=== PATIENT | male | born 1985 | race Caucasian/White ===

== ENCOUNTER 2018-07-25 18:39 | Emergency (ER) | payer MEDICAID, SELFPAY ==
[2018-07-25 18:40] VITALS: BP 142/87; PULSE 94; RESP 18; TEMP 36.4; O2SAT 99; BMI 23.1
--- NOTE | 2018-07-25 19:37 | ED.VISSUMM ---
- ER Visit Summary Date of Service: 07/25/18 Chief Complaint: Fall complaining of back pain History of Present Illness: The patient is a 33 M past medical history of schizophrenia. Patient states he was drinking alcohol last night. He went to walk down steps. Lost his balance and fell down approximately 5 steps. Denies hitting his head. Denies any LOC. Denies any headache or neck pain. Complaining of low back pain. Denies any prior significant back history or prior back surgery. Denies any bowel or bladder incontinence. Denies any weakness in his lower extremities. Physical Examination: Well-appearing young male. Vital signs are stable. Afebrile. H EENT exam atraumatic. Pupils round reactive light. No signs of facial trauma. No signs of scalp trauma. Nontender. No hematomas. C-spine nontender. Trachea midline. Full range of motion to his neck. Lungs clear to auscultation. Heart regular rate and rhythm no murmur. Heart rate 90. Chest wall nontender. No signs of trauma to the chest wall. Abdomen soft nontender. No signs of trauma. Normal bowel sounds. No peritoneal signs. Pelvic girdle intact. He is moving all 4 extremities. They are neurovascularly intact. 5 out of 5 stave cutter strength bilaterally. Dorsi and plantar flexion intact. No cauda equina. No saddle anesthesia. Neurologically is awake and alert. He has no focal motor deficits. No sensory deficits. Back is unremarkable except tenderness diffusely over his lower lumbar spine. There is no ecchymosis or bruising. No gross bony deformities. No redness or warmth. The cervical and thoracic spines are both nontender. Test Results: Lumbar spine x-rays shows chronic changes no acute process. No acute fracture. Emergency Department Course and Treatment: Discharged home. Tylenol for pain. Treatment Plan: Ice to any sore areas. Warm compresses and warm bath to relax the muscles. Disposition: Discharge Impression: Acute fall Acute lumbar contusion and strain History of schizophrenia This note was generated with [employer] dictation software. It may contain incorrect words, spelling, and punctuation that were not noted in review of the chart prior to signing ED Disposition - Plan for ED Patient: Chief Complaint: Back Referrals: Care Physician,No Primary [Primary Care Provider] -
--- NOTE | 2018-07-25 19:40 | ED.DCSUM_ITS ---
- ER Visit Summary Date of Service: 07/25/18 Chief Complaint: Fall complaining of back pain History of Present Illness: The patient is a 33 M past medical history of schizophrenia. Patient states he was drinking alcohol last night. He went to walk down steps. Lost his balance and fell down approximately 5 steps. Denies hitting his head. Denies any LOC. Denies any headache or neck pain. Complaining of low back pain. Denies any prior significant back history or prior back surgery. Denies any bowel or bladder incontinence. Denies any weakness in his lower extremities. Physical Examination: Well-appearing young male. Vital signs are stable. Afebrile. H EENT exam atraumatic. Pupils round reactive light. No signs of facial trauma. No signs of scalp trauma. Nontender. No hematomas. C-spine nontender. Trachea midline. Full range of motion to his neck. Lungs clear to auscultation. Heart regular rate and rhythm no murmur. Heart rate 90. Chest wall nontender. No signs of trauma to the chest wall. Abdomen soft nontender. No signs of trauma. Normal bowel sounds. No peritoneal signs. Pelvic girdle intact. He is moving all 4 extremities. They are neurovascularly intact. 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 Dorsi and plantar flexion intact. No cauda equina. No saddle anesthesia. Neurologically is awake and alert. He has no focal motor deficits. No sensory deficits. Back is unremarkable except tenderness diffusely over his lower lumbar spine. There is no ecchymosis or bruising. No gross bony deformities. No redness or warmth. The cervical and thoracic spines are both nontender. Test Results: Lumbar spine x-rays shows chronic changes no acute process. No acute fracture. Emergency Department Course and Treatment: Discharged home. Tylenol for pain. Treatment Plan: Ice to any sore areas. Warm compresses and warm bath to relax the muscles. Disposition: Discharge Impression: Acute fall Acute lumbar contusion and strain History of schizophrenia This note was generated with [employer] dictation software. It may contain incorrect words, spelling, and punctuation that were not noted in review of the chart prior to signing ED Disposition - Plan for ED Patient: Chief Complaint: Back Referrals: Care Physician,No Primary [Primary Care Provider] -
--- NOTE | 2018-07-25 19:40 | RAD_ITS ---
STUDY: X-RAY - LUMBAR SPINE REASON FOR EXAM: Male, 33 years old. Back pain after falling. TECHNIQUE: 3 view(s) of the lumbar spine were obtained. COMPARISON: None FINDINGS: There is straightening of the normal lumbar lordosis. There is no substantial scoliosis. There is a normal alignment of the vertebrae. The posterior height of L5 is reduced/slightly wedge-shaped posteriorly suggesting a component of hypoplasia. There is possibly a unilateral or bilateral pars defect at L5, chronic in nature. Incomplete ossification of the posterior arch of L5. Degenerative disc narrowing primarily at L5-S1. Normal disc at other levels. Negative for acute fracture of the lumbar spine. The soft tissue structures are unremarkable. RAD/Lumbar Spine 2 or 3 Views IMPRESSION: Normal alignment of the lumbar spine without acute fracture deformity. Degenerative disc narrowing at L5-S1. Slightly hypoplastic appearing L5 with incomplete ossification of the arch of L5. Potential chronic pars interarticularis defect. Electronically Signed: Aisha Chaudhry MD at 20:05 EDT , Service support ,
--- NOTE | 2018-07-25 20:25 | ED.DEP ---
ED Disposition - Plan for ED Patient: Disposition: Home or Assisted Living Chief Complaint: Back Instructions: ED Contusion Back, ED Sprain Strain Lumbar Referrals: Mode Simpson MD [NON-STAFF] - Additional Instructions: Hot shower warm bath to relax the muscles in your back. Tylenol for pain. Call and follow-up with Dr. Simpson.
[2018-07-25 20:33] VITALS: RESP 16
== END 2018-07-25 20:34 | disposition home or self-care (01) ==
PROVIDERS: Emergency Provider Emergency Medicine
DX: S39.012A Strain of muscle, fascia and tendon of lower back, initial encounter (principal); W10.9XXA Fall (on) (from) unspecified stairs and steps, initial encounter; Y93.01 Activity, walking, marching and hiking; Y92.9 Unspecified place or not applicable; Y99.9 Unspecified external cause status; F20.9 Schizophrenia, unspecified; Z72.0 Tobacco use; Z79.899 Other long term (current) drug therapy
CPT/HCPCS: 72100; 99282

== ENCOUNTER 2018-08-27 22:38 | Emergency (ER) | payer MEDICAID, SELFPAY ==
[2018-08-27 22:43] VITALS: BP 123/82; PULSE 103; RESP 18; TEMP 36.8; O2SAT 98; BMI 22.9
--- NOTE | 2018-08-27 22:46 | ED.RN ---
SUICIDE PRECAUTIONS INITIATED UPON TRIAGING PT, THIS RN REMAINED WITH PT UNTIL 1:1 SITTER ASSIGNED. PT APPEARS INTOXICATED. STATES HE IS VERY STRESSED BECAUSE HIS FUCKING IDIOT LANDLORD EVICTED HIM. PT LIVES WITH SISTER WHO CALLED POLICE TONIGHT AFTER FINDING PT WITH BELT AROUND NECK. PT STATES HE FEELS THE WORLD WOULD BE BETTER OFF WITHOUT HIM. ALSO STATES HE WOULD LIKE TO HURT HIS LANDLORD. ADMITS TO CONSUMING 2 BEERS AND 1 SHOT OF WHISKEY.
[2018-08-27 23:21] LABS: Absolute Lymphocyte Count 3.57 X10^3/ul (0.83-4.51); Absolute Neutrophil Count 6.4 X10^3/uL (2.0-7.7); Basophil# 0.09 X10^3/uL; Basophil% 0.8 % (0-1); Eosinophil# 0.33 X10^3/uL; Eosinophils% 2.8 % (0-5); Hematocrit 51.3 % (40-54); Hemoglobin 17.6 g/dl (13.0-16.5); Lymphocyte # 3.57 X10^3/ul (4.0); Lymphocyte % 30.7 % (19-41); Mean Corp Hgb Conc 34.3 g/gl (32-36); Mean Corpuscular Hgb 31.7 pg (27.0-32.0); Mean Corpuscular Volume 92.3 fL (80-94); Mean Platelet Vol. 10.4 fl (6.2-12.0); Monocyte# 1.24 X10^3/uL; Monocyte% 10.7 % (0-10); Neutrophil # 6.39 X10^3/uL (2.7-7.7); Neutrophil % 54.8 % (47-70); POSITIVE COUNT NO; POSITIVE DIFFERENTIAL NO; POSITIVE MORPHOLOGY NO; Platelet Count 263 K/mm3 (150-450); RBC Distribution Width CV 12.9 % (11.6-14.6); RBC Distribution Width SD 43.3 fl (35.1-43.9); Red Blood Count 5.56 M/mm3 (4.6-6.2); White Blood Count 11.6 K/mm3 (4.4-11.0)
[2018-08-27 23:32] LABS: Anion Gap 8 (5-15); BUN 5 mg/dL (7-18); BUN/Creat Ratio 4.2 RATIO (10-20); Calcium,Total 8.8 mg/dL (8.5-10.1); Chloride 104 mmol/L (98-107); Creatinine, Serum 1.19 mg/dL (0.70-1.30); EST Glomerular Filtration Rate 74 mL/min (>60); Est Glom Filt Rate - Afr Amer 90 mL/min (>60); Estimated Creatinine Clearance 89.79 ml/min; Glucose 87 mg/dL (74-106); Potassium 3.8 mmol/L (3.5-5.1); Sodium Level 140 mmol/L (136-145)
--- NOTE | 2018-08-27 23:32 | ED.VISSUMM ---
- ER Visit Summary Date of Service: 08/27/18 Chief Complaint: Self harm behavior History of Present Illness: The patient is a 33 M who had a belt around his neck and tried pulling at it to help him sleep. He is upset because he is being evicted. He denies the fact that he wanted to hurt himself. He does admit to quite a bit of alcohol tonight. Denies any other drugs. Physical Examination: Not appear in acute distress. He does appear intoxicated with smell instrumentation Moist mucous membranes, no obvious facial deformity No C-spine tenderness supple neck. No ligature dee are seen. Regular rate and rhythm without any obvious murmurs Clear lungs bilaterally speaking in full sentences without any obvious respiratory distress Abdomen soft and nontender no guarding or rebound Moves all extremities without any difficulty or pain. Skin does not show any obvious rashes or lesions, no trauma. Alert oriented ?3 with no gross focal deficit. He is lucid and mostly coherent Emergency Department Course and Treatment: Patient will be medically cleared. He will be seen by our sheet metal worker apprentice as he is protocol at this institution when he is sober, lucid and coherent. Disposition: To be determined Impression: Self harm behavior This note was generated with [employer] dictation software. It may contain incorrect words, spelling, and punctuation that were not noted in review of the chart prior to signing ED Disposition - Plan for ED Patient: Chief Complaint: Suicidal Referrals: Care Physician,No Primary [Primary Care Provider] -
[2018-08-27 23:40] VITALS: BP 111/86; PULSE 97; RESP 14; O2SAT 99
[2018-08-28 00:05] LABS: Amphetamine Urine VISTA NEGATIVE (<1000 ng/mL); Barbiturate Urine VISTA NEGATIVE (< 200 ng/mL); Benzodiazepine Urine VISTA NEGATIVE (< 200 ng/mL); Cocaine Urine VISTA NEGATIVE (< 300 ng/mL); Ecstacy Urine VISTA NEGATIVE (< 500 ng/mL); Methadone Urine VISTA NEGATIVE (< 300 ng/mL); PCP Urine VISTA NEGATIVE (< 25 ng/mL); THC Urine VISTA POSITIVE (< 50 ng/mL); Vista UDS pH Range 5
[2018-08-28 03:36] VITALS: BP 115/79; PULSE 93; RESP 18; O2SAT 94
--- NOTE | 2018-08-28 03:55 | ED.RN ---
GERMAN FROM CRISIS IS COMING TO SEE PT.
--- NOTE | 2018-08-28 04:48 | ED.RN ---
GERMAN FROM CRISIS IS HERE TO SEE PT.
[2018-08-28] MEDS: Acetaminophen 500 MG Tablet 1000 MG PO (05:02)
--- NOTE | 2018-08-28 05:02 | ED.RN ---
pt walking out of room stated, I will martinez whoever tries to send me to a hospital. Tylenol given for hand pain and beverage.
--- NOTE | 2018-08-28 05:21 | ED.RN ---
PT STATES I NEVER SHOULD HAVE SAID ANYTHING. I'M LEAVING. YOU CAN'T STOP ME. FATHER IN THE ROOM. FATHER STATES I'M TAKING HIM HOME. WHEN THIS NURSE INFORMED THE PATIENT THAT HE IS PINK SLIPPED AND HE MAY NOT LEAVE PT STATES YOU TRY TO STOP ME. I'M FUCKING LEAVING. FATHER STATES YOU CAN'T MAKE HIM STAY. FATHER HAS A HOMEMADE WOODEN CANE. PT STARTED GETTING OUT OF BED SAYING I'M LEAVING. THIS NURSE INFORMED THE PATIENT IF HE LEAVES THE POLICE WILL BE CONTACTED. PT STATES FUCK YOU I'M LEAVING. THIS NURSE HAD THE EMERGENCY VETERINARY ASSISTANT CONTACT SEBASTIAN PHAN. WHILE WAITING FOR [facility] TO ARRIVE, PT STATED I SHOULD HAVE JUST KILLED MYSELF.. PT ALSO STATED NEXT TIME I'M JUST GOING TO DO IT. [facility] AT THE BEDSIDE TALKING WITH THE PATIENT AND FATHER
--- NOTE | 2018-08-28 05:39 | ED.RN ---
PT BECOMING INCREASINGLY AGITATED. PT STATES THERE IS ALWAYS A WAY TO ESCAPE. PT IS ROCKING BACK AND FORTH IN THE BED. [facility] REMAIN AT THE BEDSIDE. SITTER STANDING IN THE DOORWAY
[2018-08-28] MEDS: Haloperidol Lactate 5 MG/ML Vial 10 MG IM (05:46)
[2018-08-28] MEDS: DiphenhydrAMINE 50 MG/ML Syringe 25 MG IM (05:46)
[2018-08-28 06:50] VITALS: BP 121/80; PULSE 82; RESP 14; O2SAT 96
--- NOTE | 2018-08-28 08:41 | ED.RN ---
PT RECEIVED BREAKFAST TRAY. DENIES FURTHER NEEDS. SITTER PRESENT IN ROOM. PT SISTER CALLED AND PT WISHED TO SPEAK WITH HER. CORDLESS PHONE PROVIDED TO PT
--- NOTE | 2018-08-28 11:22 | ED.RN ---
REPORT ATTEMPTED TO BE CALLED TO [facility] FOR PT TRANSFER, ONCE AT 0830 AND ONCE AT 0930. BOTH TIMES PHONE RANG CONTINUOUSLY WITH NO ANSWER AND NO FORWARD TO VOICEMAIL SERVICE. WAS ABLE TO CONTACT INTAKE AND LEFT NAME AND DIRECT PHONE NUMBER FOR FACILITY RN TO CALL AT [facility] FOR REPORT. [facility] TO ARRIVE FOR CARDIOPULMONARY PHYSICAL THERAPIST AT 1300.
[2018-08-28 13:00] VITALS: BP 120/82; PULSE 80; RESP 16
[2018-08-28 13:31] VITALS: BP 120/82; PULSE 80; RESP 16
== END 2018-08-28 13:32 ==
PROVIDERS: Emergency Provider Emergency Medicine
DX: R45.851 Suicidal ideations (principal); R45.1 Restlessness and agitation; F20.9 Schizophrenia, unspecified; F31.9 Bipolar disorder, unspecified; F41.9 Anxiety disorder, unspecified; Z79.899 Other long term (current) drug therapy
CPT/HCPCS: 80048; 80307; 80320; 85025; 96372; 99283; G0480

== ENCOUNTER 2022-12-20 18:20 | Emergency (ER) | payer MEDICAID, SELFPAY ==
[2022-12-20 18:23] VITALS: BP 137/106; PULSE 114; RESP 16; TEMP 36.4; O2SAT 99; BMI 19.4
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
[2022-12-20 19:35] LABS: Absolute Lymphocyte Count 2.39 X10^3/uL (0.83-4.51); Absolute Neutrophil Count 8.7 X10^3/uL (2.0-7.7); Basophil# 0.12 X10^3/uL; Eosinophil# 0.12 X10^3/uL; Hemoglobin 16.1 g/dL (13.0-16.5); Lymphocyte # 2.39 X10^3/ul (0.83-4.51); Mean Corp Hgb Conc 34.3 g/dL (32-36); Mean Corpuscular Hgb 31.5 pg (27.0-32.0); Mean Platelet Vol. 9.2 fl (6.2-12.0); Monocyte# 1.17 X10^3/uL; Monocyte% 9.3 % (0-10); NRBC Flagged by Analyzer 0 % (0-5); Neutrophil # 8.74 X10^3/uL (2.7-7.7); Neutrophil % 69.4 % (47-70); Platelet Count 386 K/mm3 (150-450); RBC Distribution Width CV 12.1 % (11.6-14.6); RBC Distribution Width SD 41.2 fl (35.1-43.9); Red Blood Count 5.11 M/mm3 (4.6-6.2); White Blood Count 12.6 K/mm3 (4.4-11.0)
[2022-12-20 19:48] LABS: BUN 12 mg/dL (7-18); EST Glomerular Filtration Rate 100 mL/min (>60); Estimated Creatinine Clearance 93.89 ml/min; Glucose 94 mg/dL (74-106)
[2022-12-20 19:49] LABS: Alcohol, Blood (Medical)-Serum < 3.0 mg/dL; Anion Gap 8 (5-15); BUN/Creat Ratio 13.3 RATIO (10-20); Calcium,Total 9.3 mg/dL (8.5-10.1); Chloride 103 mmol/L (98-107); Est Glom Filt Rate - Afr Amer 121 mL/min (>60); Potassium 3.6 mmol/L (3.5-5.1); Sodium Level 138 mmol/L (136-145)
--- NOTE | 2022-12-20 19:56 | EDS_ITS ---
HPI HPI - Psych History of Present Illness Chief Complaint: Mental Health Narrative Narrative: Patient got into an argument with his girlfriend, he had some PTSD about his ex- girlfriend that he felt suicidal he went out in the [place] with a sword with a dagger and the knife and was found by the speech and language assistant. He tells me that he also hit his head against the wall to drive the psychiatric disease out of him. Now he tells me he has not symptomatic and he does not want to kill himself. He feels improved and calm down. PFSH PFSH Medical History Paranoid schizophrenia PTSD (post-traumatic stress disorder) Home Medications haloperidol decanoate 100 mg/mL intramuscular solution (Haldol Decanoate) 100 mg IM QMONTH 05/02/16 [History Last Taken Unknown] Bp Med 05/17/16 [History Last Taken Unknown] benztropine 2 mg tablet 2 mg PO BID 05/17/16 [History Last Taken Unknown] exrrbooprs-anoebifdzbrjg-rmaqvxmo 50 mg-325 mg-40 mg tablet 1 tab PO Q4H PRN PRN Headache ##14 05/17/16 [Rx Last Taken Unknown] Allergy/AdvReac Type Severity Reaction Status Date / Time acetaminophen AdvReac Rash Verified 12/20/22 18:26 aspirin AdvReac Nausea Verified 08/27/18 22:46 hydrocodone bitartrate AdvReac Vomiting Verified 08/27/18 22:46 [From Vicodin] ibuprofen AdvReac Unknown Verified 08/27/18 22:46 Social History Smoking Status: Current every day smoker tobacco type: cigarettes ROS ROS ED ROS Narrative Past medical history: Reviewed, includes paranoid schizophrenia Medications: Reviewed Review of systems: Patient has no somatic complaints General: No fever ENT: No upper airway congestion, normal voice Head: He has an abrasion over his forehead but he denies Neck: No neck pain Cardiovascular: No chest pain Respiratory: No shortness of breath or cough Gastrointestinal: No abdominal pain, nausea vomiting or diarrhea Musculoskeletal: Denies myalgias no difficulty with ambulation Skin: No rash Neurological: No memory loss, confusion or any focal weakness Psych: As in HPI EXAM Physical Exam Narrative Exam Narrative: Physical exam General: Patient does not appear in distress. Head: Normocephalic, small forehead abrasion Eyes: Conjunctiva not pale ENT: Moist mucous membranes Neck: Supple, Nontender, No lymphadenopathy Cardiovascular: Regular rate, Regular rhythm Respiratory: No distress, CTA bilaterally Abdomen: Soft, Nontender, Nondistended Back: Nontender, Normal Inspection. Negative for: CVA tenderness Extremities: Nontender, No edema Skin: Normal color, No rash Neurological: Alert, Normal Strength, Normal Sensation Psychological: Bizarre affect, he does answer questions relatively appropriately, he tells me he is no longer suicidal. Const Vital Signs: 12/20/22 18:23 Temperature 97.5 F L Temperature Source Temporal Pulse Rate 114 H Respiratory Rate 16 Blood Pressure 137/106 H Blood Pressure Mean 116 Pulse Ox 99 Oxygen Delivery Method Room Air MDM MDM MDM Narrative Medical decision making narrative: A. Problems addressed patient has schizophrenia, had suicidal ideations although now he is calm and collected. He is medically cleared I will wait for the psych liaison to assess him. B. Amount and/or complexity of the data 1. CBC and CMP and alcohol were interpreted by me I discussed the patient with the speech and language assistant's department 2. Discussed the patient with crisis C. Risk of complications and/or morbidity Differential diagnosis: See above Lab Data Labs: Laboratory Results - last 24 hr 12/20/22 12/20/22 12/20/22 19:25 19:25 19:25 WBC 12.6 H RBC 5.11 Hgb 16.1 Hct 47.0 MCV 92.0 MCH 31.5 MCHC 34.3 RDW Std Deviation 41.2 RDW Coeff of Jesus 12.1 Plt Count 386 MPV 9.2 Immature Gran % (Auto) 0.300 Neut % (Auto) 69.4 Lymph % (Auto) 19.0 [place] % (Auto) 9.3 Eos % (Auto) 1.0 Baso % (Auto) 1.0 Absolute Neuts (auto) 8.7 H Absolute Lymphs (auto) 2.39 Nucleated RBC % 0 Sodium 138 Potassium 3.6 Chloride 103 Carbon Dioxide 27.0 Anion Gap 8 BUN 12 Creatinine 0.90 Estim Creat Clear Calc 93.89 Est GFR (MDRD) Af Amer 121 Est GFR (MDRD) Non-Af 100 BUN/Creatinine Ratio 13.3 Glucose 94 Calcium 9.3 Ethyl Alcohol < 3.0 Discharge Plan Triage Chief Complaint: Mental Health ED Provider: Jon Courtney Dx/Rx/DC Orders Clinical Impression: Schizophrenia, History of suicidal ideation Prescriptions: No Action haloperidol decanoate [Haldol Decanoate] 100 MG/ML Ml 100 mg IM QMONTH benztropine 2 MG tablet 2 mg PO BID Bp Med ncwzwczywu-cfaibnmkvvwkk-ulnm 1 TABLET tablet 1 tab PO Q4H PRN PRN (Reason: Headache) Qty: 14 0RF Rx Instructions: causes drowsiness Primary Care Provider: Care Physician,No Primary Referrals: Care Physician,No Primary [Primary Care Provider] -
--- NOTE | 2022-12-20 19:56 | EX.ED.VIS.PS ---
HPI HPI - Psych History of Present Illness Chief Complaint: Mental Health Narrative Narrative: Patient got into an argument with his girlfriend, he had some PTSD about his ex-girlfriend that he felt suicidal he went out in the [place] with a sword with a dagger and the knife and was found by the truck greaser. He tells me that he also hit his head against the wall to drive the psychiatric disease out of him. Now he tells me he has not symptomatic and he does not want to kill himself. He feels improved and calm down. PFSH PFS Medical History Paranoid schizophrenia PTSD (post-traumatic stress disorder) Home Medications aripiprazole 20 mg tablet 20 mg PO DAILY 12/20/22 [History Last Taken Unknown] buspirone 15 mg tablet 15 mg PO TID 12/20/22 [History Last Taken Unknown] propranolol 20 mg tablet 20 mg PO BID 12/20/22 [History Last Taken Unknown] quetiapine 300 mg tablet 300 mg PO DAILY 12/20/22 [History Last Taken Unknown] trihexyphenidyl 2 mg tablet 2 mg PO 4X/DAY 12/20/22 [History Last Taken Unknown] Allergy/AdvReac Type Severity Reaction Status Date / Time acetaminophen AdvReac Rash Verified 12/20/22 20:38 aspirin AdvReac Nausea Verified 12/20/22 20:38 hydrocodone bitartrate AdvReac Vomiting Verified 12/20/22 20:38 [From Vicodin] ibuprofen AdvReac Unknown Verified 12/20/22 20:38 Social History Smoking Status: Current every day smoker tobacco type: cigarettes ROS ROS ED ROS Narrative Past medical history: Reviewed, includes paranoid schizophrenia Medications: Reviewed Review of systems: Patient has no somatic complaints General: No fever ENT: No upper airway congestion, normal voice Head: He has an abrasion over his forehead but he denies Neck: No neck pain Cardiovascular: No chest pain Respiratory: No shortness of breath or cough Gastrointestinal: No abdominal pain, nausea vomiting or diarrhea Musculoskeletal: Denies myalgias no difficulty with ambulation Skin: No rash Neurological: No memory loss, confusion or any focal weakness Psych: As in HPI EXAM Physical Exam Narrative Exam Narrative: Physical exam General: Patient does not appear in distress. Head: Normocephalic, small forehead abrasion Eyes: Conjunctiva not pale ENT: Moist mucous membranes Neck: Supple, Nontender, No lymphadenopathy Cardiovascular: Regular rate, Regular rhythm Respiratory: No distress, CTA bilaterally Abdomen: Soft, Nontender, Nondistended Back: Nontender, Normal Inspection. Negative for: CVA tenderness Extremities: Nontender, No edema Skin: Normal color, No rash Neurological: Alert, Normal Strength, Normal Sensation Psychological: Bizarre affect, he does answer questions relatively appropriately, he tells me he is no longer suicidal. Const Vital Signs: 12/20/22 18:23 Temperature 97.5 F L Temperature Source Temporal Pulse Rate 114 H Respiratory Rate 16 Blood Pressure 137/106 H Blood Pressure Mean 116 Pulse Ox 99 Oxygen Delivery Method Room Air MDM MDM MDM Narrative Medical decision making narrative: A. Problems addressed patient has schizophrenia, had suicidal ideations although now he is calm and collected. He is medically cleared I will wait for the psych liaison to assess him. They do believe the patient needs to be placed. As of now I will turn over the patient to the oncoming ED physician B. Amount and/or complexity of the data 1. CBC and CMP and alcohol were interpreted by me I discussed the patient with the truck greaser's department 2. Discussed the patient with crisis C. Risk of complications and/or morbidity Differential diagnosis: See above Lab Data Labs: Laboratory Results - last 24 hr 12/20/22 12/20/22 12/20/22 19:25 19:25 19:25 WBC 12.6 H RBC 5.11 Hgb 16.1 Hct 47.0 MCV 92.0 MCH 31.5 MCHC 34.3 RDW Std Deviation 41.2 RDW Coeff of Jesus 12.1 Plt Count 386 MPV 9.2 Immature Gran % (Auto) 0.300 Neut % (Auto) 69.4 Lymph % (Auto) 19.0 [place] % (Auto) 9.3 Eos % (Auto) 1.0 Baso % (Auto) 1.0 Absolute Neuts (auto) 8.7 H Absolute Lymphs (auto) 2.39 Nucleated RBC % 0 Sodium 138 Potassium 3.6 Chloride 103 Carbon Dioxide 27.0 Anion Gap 8 BUN 12 Creatinine 0.90 Estim Creat Clear Calc 93.89 Est GFR (MDRD) Af Amer 121 Est GFR (MDRD) Non-Af 100 BUN/Creatinine Ratio 13.3 Glucose 94 Calcium 9.3 Urine Opiates Screen Urine Methadone Screen Ur Barbiturates Screen Ur Phencyclidine Scrn Ur Amphetamines Screen MDMA (Ecstasy) Screen U Benzodiazepines Scrn Urine Cocaine Screen U Cannabinoids Screen Ur Drug Screen Comment Ethyl Alcohol < 3.0 12/20/22 20:30 WBC RBC Hgb Hct MCV MCH MCHC RDW Std Deviation RDW Coeff of Jesus Plt Count MPV Immature Gran % (Auto) Neut % (Auto) Lymph % (Auto) [place] % (Auto) Eos % (Auto) Baso % (Auto) Absolute Neuts (auto) Absolute Lymphs (auto) Nucleated RBC % Sodium Potassium Chloride Carbon Dioxide Anion Gap BUN Creatinine Estim Creat Clear Calc Est GFR (MDRD) Af Amer Est GFR (MDRD) Non-Af BUN/Creatinine Ratio Glucose Calcium Urine Opiates Screen NEGATIVE Urine Methadone Screen NEGATIVE Ur Barbiturates Screen NEGATIVE Ur Phencyclidine Scrn NEGATIVE Ur Amphetamines Screen POSITIVE H MDMA (Ecstasy) Screen NEGATIVE U Benzodiazepines Scrn NEGATIVE Urine Cocaine Screen NEGATIVE U Cannabinoids Screen POSITIVE H Ur Drug Screen Comment Ethyl Alcohol Radiography Diagnostic Testing: Clinical Impression(s) from Imaging Studies Brain CT 12/20/22 18:49 IMPRESSION: Normal unenhanced CT scan of the brain. [employer] was utilized to assist in identifying pertinent positive findings in this case. Electronically Signed: Venkat Hernández DO at 20:01 EST Reading Location ID and State: [address] [place] [address] Tel [phone], Service support , Discharge Plan Triage Chief Complaint: Mental Health ED Provider: Jon Courtney Dx/Rx/DC Orders Clinical Impression: Schizophrenia, History of suicidal ideation Prescriptions: No Action quetiapine 300 mg tablet 300 mg PO DAILY trihexyphenidyl 2 mg tablet 2 mg PO 4X/DAY propranolol 20 mg tablet 20 mg PO BID buspirone 15 mg tablet 15 mg PO TID aripiprazole 20 mg tablet 20 mg PO DAILY Primary Care Provider: Care Physician,No Primary Referrals: Care Physician,No Primary [Primary Care Provider] -
--- NOTE | 2022-12-20 20:49 | ED.RN ---
Called counselling center to verify pt medication list.
[2022-12-20 20:56] LABS: Amphetamine Urine VISTA POSITIVE (<1000 ng/mL); Barbiturate Urine VISTA NEGATIVE (< 200 ng/mL); Benzodiazepine Urine VISTA NEGATIVE (< 200 ng/mL); Cocaine Urine VISTA NEGATIVE (< 300 ng/mL); Ecstacy Urine VISTA NEGATIVE (< 500 ng/mL); Methadone Urine VISTA NEGATIVE (< 300 ng/mL); PCP Urine VISTA NEGATIVE (< 25 ng/mL); THC Urine VISTA POSITIVE (< 50 ng/mL); Vista UDS pH Range 7
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
--- NOTE | 2022-12-20 21:25 | CM.ED ---
YAW Note SW contacted [facility] and provided verbal referral; admission staff report they have available beds and patient sounds appropriate for services at their facility. SW faxed referral to [facility]. SW contacted Crisis to inform them of the referral and request referral packet if patient is declined from [facility]. legal administrative secretary given referral packet in the event patient is declined to then give to Crisis. Plan: referral pending at [facility] Mariely MATHUR, LASHA
[2022-12-20 22:00] VITALS: RESP 17
[2022-12-20 22:52] VITALS: BP 134/101; PULSE 101; RESP 18; O2SAT 97
--- NOTE | 2022-12-20 22:52 | ED.RN ---
Pt informed of placement and pink slip. Pt becoming angry and restless, stating I have rights and you cant do this to me. This RN informed pt of purpose of a pink slip. Security informed, battery charger conveyor line informed. Careful monitoring warranted.
[2022-12-21 06:31] VITALS: BP 125/89; PULSE 91; RESP 19; O2SAT 97
--- NOTE | 2022-12-21 06:39 | ED.RN ---
Update given to sarah Plunkettmate, about plan of care and psychiatric care placement.
--- NOTE | 2022-12-21 16:42 | CM.ED ---
Social Work Note SW contacted by acquisition associate explaining patient's sister was inquiring about what facility patient went to. SW to follow up. SW contacted [facility] to confirm patient was transferred there, admissions staff report patient was accepted and currently at their facility. Admissions staff report the patient has to contact his family to provide them with a pin in order for patient's family to contact the facility. SW contacted patient's sister and introduced herself and role as [facility] SW. SW contacted patient's sister as patient stated yesterday his sister was a major support. SW informed patient's sister he was at [facility], [phone] and reviewed their policy regarding family needing a pin to talk to patient or their staff. Patient's sister voiced understanding and inquired about length of stay. YAW explained average length of stay is 3 to 5 days but it depends on the patient and facility staff. Patient's sister reports she spoke with patient's roommate and was appreciative patient's roommate contacted police. Patient's sister also reports the patient had not been taking his medications due to the amount of medications he currently had in his belongings. SW provided patient's sister with emotional support and encouragement, no other needs voiced at this time. Patient was accepted to [facility] 12/21/22. Mariely MATHUR, LASHA
== END 2022-12-21 07:07 ==
PROVIDERS: Emergency Provider Emergency Medicine; Visit Provider Emergency Medicine
DX: F20.9 Schizophrenia, unspecified (principal); X83.8XXA Intentional self-harm by other specified means, initial encounter; S00.81XA Abrasion of other part of head, initial encounter; F43.10 Post-traumatic stress disorder, unspecified; R45.851 Suicidal ideations; F17.210 Nicotine dependence, cigarettes, uncomplicated; Z79.899 Other long term (current) drug therapy
CPT/HCPCS: 70450; 80048; 80307; 82077; 85025; 87811; 93005; 99282

== ENCOUNTER 2023-05-22 21:56 | Emergency (ER) | payer MEDICAID, SELFPAY ==
[2023-05-22 21:57] VITALS: BP 147/90; PULSE 86; RESP 18; TEMP 36.3; O2SAT 99; BMI 22.8
--- NOTE | 2023-05-22 22:54 | EX.ED.VIS.PS ---
HPI HPI - Psych History of Present Illness Chief Complaint: Suicidal Informant: patient and police/ballast inspector Narrative Narrative: Patient is a 38-year-old male with history of bipolar disorder and schizophrenia presenting via police for threats of suicidal and homicidal ideations. Patient is 3 roommates. Per police report patient was threatening to harm himself as well as others. He was reported to say he is going to come at people with a knife. Roommates reported to police that the symptoms been worsening for the past 2 weeks and they are also concerned is not taking his medications. Patient states he might have said some stuff but did not mean any of it. States he has no homicidal or suicidal ideations. Patient states that he follows with Dr. Parris Hairston at the counseling center. He states he has been try to get a hold of her but does not like to leave voicemails and so he has been unsuccessful with this. He denies any physical complaints at this time except for mild headache. He states he normally takes Aleve for this. [facility] Medical History Paranoid schizophrenia PTSD (post-traumatic stress disorder) Home Medications aripiprazole 20 mg tablet 30 mg PO QHS 12/20/22 [History Last Taken Unknown] quetiapine 300 mg tablet 300 mg PO QHS 12/20/22 [History Last Taken Unknown] trihexyphenidyl 2 mg tablet 4 mg PO BID 12/20/22 [History Last Taken Unknown] prazosin 1 mg capsule 1 mg PO DAILY 05/22/23 [History Last Taken Unknown] Allergy/AdvReac Type Severity Reaction Status Date / Time acetaminophen AdvReac Rash Verified 05/22/23 22:00 aspirin AdvReac Nausea Verified 05/22/23 22:00 hydrocodone bitartrate AdvReac Vomiting Verified 05/22/23 22:00 [From Vicodin] ibuprofen AdvReac Unknown Verified 05/22/23 22:00 Social History Smoking Status: Current every day smoker tobacco type: cigarettes and e-cigarettes ROS ROS ED Constitutional Constitutional ED: Denies chills or fever(s) Eyes Eyes: Denies change in vision Cardiovascular Cardiovascular: Denies chest pain Respiratory/Chest Respiratory/Chest: Denies cough Gastrointestinal Gastrointestinal: Denies nausea or vomiting Integumentary Denies rash Neurologic Neurologic: Reports headache(s) Psychiatric Psychiatric: Reports other Details: Reported threats of self-harm and homicidal ideation but patient denies ; Denies suicidal ideation or suicidal thoughts EXAM Physical Exam Const Vital Signs: 05/22/23 21:57 Temperature 97.4 F L Temperature Source Temporal Pulse Rate 86 Respiratory Rate 18 Blood Pressure 147/90 H Blood Pressure Mean 109 Pulse Ox 99 Oxygen Delivery Method Room Air Positive well nourished and well developed General Appearance ED: well developed, irritable and NAD HEENT Reports moist mucous membranes normocephalic and atraumatic Eyes PERRL and EOMs intact bilaterally Neck supple Resp normal respiratory effort and clear to auscultation bilaterally Cardio no murmurs Rate: regular rate Rhythm: regular rhythm GI non-tender Extremity normal to inspection General Extremety ED: Negative for edema General Extremity: Negative for edema Neuro oriented x3 Sensorium / Orientation: alert Motor Exam: muscle tone normal throughout; Negative for general weakness Psych mental status grossly normal, cooperative, affect normal and speech normal Appearance: grossly normal Attitude: calm Activity / Motor Behavior: appropriate eye contact Speech: normal speech Mood & Affect: irritable Thought Process: normal thought process Thought Content: No suicidality, No homicidality, No delusion(s) and No hallucination(s) Attention / Concentration: attention grossly intact Memory / Cognition: memory grossly intact Insight: insight good Judgement: fair Skin Lesions: no lesions Rashes: no rashes MDM MDM MDM Narrative Medical decision making narrative: Presents with making comments on homicidal and suicidal threats. Patient denies any actual homicidal or suicidal ideations. He is acting appropriate at this time. Chart review does show he has a history of similar presentation but often times will be contracted for safety. He states has been compliant with his medications. He does follow with the counseling center. He tells me has been trying to get a hold of his psychiatrist but does not like to leave voicemails. He is evaluated by the counseling center as he came in with pink slip and has reportedly 3 roommates to stating that he has made homicidal and suicidal threats. Patient is contracted for safety. While patient admits to saying some things he states he did not actually mean it and with his history this does seem probable. Patient seems insightful. Will be discharged home with close outpatient psychiatric follow-up. Given return precautions. Discharged home in stable condition. History & Record Review Additional record(s) reviewed:: Prior ED visit Discharge Plan Triage Chief Complaint: Suicidal ED Provider: Thais Boykin Dx/Rx/DC Orders Clinical Impression: Schizophrenia Instructions: CONTRACT, No Harm, ED Schizophrenia, General Prescriptions: No Action quetiapine 300 mg tablet 300 mg PO QHS trihexyphenidyl 2 mg tablet 4 mg PO BID aripiprazole 20 mg tablet 30 mg PO QHS prazosin 1 mg capsule 1 mg PO DAILY Primary Care Provider: Care Physician,No Primary Referrals: Counseling,Center [Group of Physicians] - As Needed Care Physician,No Primary [Primary Care Provider] - Activity Restrictions/Additional Instructions: Please continue take your daily medication as prescribed. If you feel like you are symptoms worsen or you are starting to have thoughts of harming yourself or others please return to the emergency room. Disposition Disposition: Home, Self Care
--- NOTE | 2023-05-22 22:59 | ED.RN ---
Dr. Boykin ok to take blister pack of meds.
[2023-05-22] MEDS: Naproxen 250 MG Tablet PO (23:16)
[2023-05-23 02:50] VITALS: BP 137/97; PULSE 84; RESP 20; O2SAT 99
== END 2023-05-23 02:51 | disposition home or self-care (01) ==
PROVIDERS: Emergency Provider Emergency Medicine; Visit Provider Emergency Medicine
DX: F20.0 Paranoid schizophrenia (principal); F31.9 Bipolar disorder, unspecified; R51.9 Headache, unspecified; F17.210 Nicotine dependence, cigarettes, uncomplicated; F17.290 Nicotine dependence, other tobacco product, uncomplicated; Z79.899 Other long term (current) drug therapy
CPT/HCPCS: 99285